=== PATIENT | male | born 1950 ===

== ENCOUNTER 2017-10-09 12:21 | Emergency (ER) | payer MEDICARE, OTHER ==
[~2017-10-09] VITALS: Ht 182.9 cm; Wt 74.8 kg
[~2017-10-09 12:21] MED LIST: ONDA8 PO; OXYC10TA19; PROC10 PO; VOTRIENT200 MG PO; [UNRECOGNIZED DRUG - OTHER] BOTHEYES
[2017-10-09] MEDS ORDERED: MONDOXYNE NL100 MG PO (13:04)
[2017-10-09] MEDS ORDERED: PROC10 PO (13:15)
[2017-10-09] MEDS ORDERED: METO10 PO (13:15)
[2017-10-09] MEDS ORDERED: TAMS.4ER PO (13:16)
[2017-10-09] MEDS ORDERED: ESCI10 PO (13:16)
[2017-10-09] MEDS ORDERED: CEFU500T30 PO (13:17)
== END 2017-10-09 13:19 | disposition home or self-care (01) ==
LOC: ER 12:21
DX: J32.9 Chronic sinusitis, unspecified (principal); Z88.5 Allergy status to narcotic agent; Z79.899 Other long term (current) drug therapy
CPT/HCPCS: 99282